=== PATIENT | female | born 1970 | race Hispanic/Latino ===

== ENCOUNTER 2018-12-15 09:40 | Emergency (ER) | payer OTHER ==
[2018-12-15] MEDS ORDERED: ONDANSETRON HCL 4 MG/2 ML VIAL ONE (10:07)
[2018-12-15] MEDS ORDERED: SODIUM CHLORIDE 0.9% 1000ML 1,000 ML IV ONE (10:08)
[2018-12-15] MEDS ORDERED: KETOROLAC TROMETHAMINE 30MG/ML ONE (10:08)
[2018-12-15 10:11] LABS: BASOPHILS % (AUTO) 0.8 % (0.0-5.0); EOSINOPHILS % (AUTO) 1.2 % (0.0-8.0); HEMATOCRIT 39.8 % (36-48); LYMPHOCYTES % (AUTO) 32.3 % (21.0-51.0); MEAN CORPUSCULAR HGB CONC 34.5 g/dL (32.0-36.0); MEAN CORPUSCULAR VOLUME 92.6 fL (79-99); MONOCYTES % (AUTO) 8.2 % (3.0-13.0); NEUTROPHILS % (AUTO) 57.5 % (40.0-77.0); PLATELET COUNT (AUTO) 271 K/uL (130-400); WHITE BLOOD COUNT (AUTO) 5.7 K/uL (4.8-10.8)
[2018-12-15 10:24] LABS: CREATININE 0.7 mg/dL (0.5-1.5); POTASSIUM 4.1 mmol/L (3.5-5.1)
[2018-12-15 10:29] LABS: ALBUMIN 3.6 g/dL (3.5-5.0); BILIRUBIN,DIRECT 0.1 mg/dL (0.0-0.3); BILIRUBIN,TOTAL 0.4 mg/dL (0.2-1.0); TOTAL PROTEIN, SERUM 7.7 g/dL (6.0-8.3)
[2018-12-15 10:36] LABS: BILIRUBIN,URINE NEGATIVE (NEGATIVE); COLOR,URINE YELLOW (YELLOW); GLUCOSE, URINE (UA) NEGATIVE (NEGATIVE); KETONES,URINE NEGATIVE (NEGATIVE); LEUKOCYTE ESTERASE ,URINE NEGATIVE (NEGATIVE); NITRATE,URINE NEGATIVE (NEGATIVE); OCCULT BLOOD,URINE LARGE (NEGATIVE); PROTEIN,URINE 30 mg/dL (NEGATIVE); UROBILINOGEN,URINE 0.2 mg/dL (0.2-1.0)
[2018-12-15 10:38] LABS: APPEARANCE,URINE SLIGHTLY CLOUDY (CLEAR)
[2018-12-15 11:19] LABS: RBC,URINE 26-50 /HPF (0-1)
[2018-12-15 11:20] LABS: BACTERIA,URINE Few /HPF (None Seen)
== END 2018-12-15 12:32 | disposition home or self-care (01) ==
LOC: EDH 09:40
DX: N20.0 Calculus of kidney (principal); Z90.710 Acquired absence of both cervix and uterus
CPT/HCPCS: 36415; 74176; 80048; 80076; 81001; 82550; 83690; 84484; 85025; 93005; 96374; 96375; 99285; J1885; J2405; J7030